=== PATIENT | male | born 1950 | race Caucasian/White ===

== ENCOUNTER 2016-09-24 02:04 | Emergency (ER) | payer MEDICARE, BC ==
[2016-09-24 02:55] LABS: Hematocrit 37 % (42-52); Hemoglobin 12.3 g/dl (14.0-18.0); Mean Corpuscular HGB Conc 33 g/dl (31-36); Mean Corpuscular Hemoglobin 30 pg (27-31); Mean Corpuscular Volume 89 fL (80-94); Mean Platelet Volume 10 um3 (7.4-10.4); Red Blood Count 4.15 10^6/ul (4.0-5.4); Red Cell Distribution Width 13 % (10.5-15); White Blood Count 6.4 10^3/ul (3.5-10.8)
[2016-09-24 03:36] LABS: Albumin 3.7 g/dL (3.2-5.2); BUN/Creatinine Ratio 14.8 (8-20); EGFR African American 122.2 (>60); EGFR Non-African American 95.1 (>60); Globulin 3.4 g/dL (2-4); Magnesium 2.2 mg/dL (1.9-2.7); Total Bilirubin 0.6 mg/dL (0.2-1.0); Total Protein 7.1 g/dL (6.4-8.9)
[2016-09-24 03:41] LABS: Potassium 4.5 mmol/L (3.5-5.0)
[2016-09-24 04:00] LABS: Urine Bilirubin Negative (Negative); Urine Glucose Negative (Negative); Urine Nitrite Negative (Negative)
[2016-09-24 04:35] VITALS: BP 129/79
--- NOTE | 2016-09-24 04:59 | ED ---
I, Oh,Sotato, scribed for Monroe Lawrence MD on 09/24/16 at 0310 . HPI Febrile Illness - HPI Summary HPI Summary: This 66 y/o male presents to ED for persistent subjective fever since last week. "Having trouble going to sleep". Positive general myalgia and arthralgia. Pt decided to visit ED when he became concerned with persistent symptoms. Fever is alleviated with IBP and APAP. Temperature of 98.3 F is noted at triage. PMHx includes HTN, HLD, and anal fissure that was recently evaluated by his PCP 2 weeks ago. Primary care involves provider in [place]. - History of Current Complaint Chief Complaint: EDFever Time Seen by Provider: 09/24/16 02:52 Hx Obtained From: Patient Onset/Duration: Started Weeks Ago, Still Present Timing: Constant Pain Intensity: 5 Pain Scale Used: 0-10 Numeric Aggravating Factors: Nothing Alleviating Factors: OTC Medicine - APAP and IBP Associated Signs and Symptoms: Arthralgia, Myalgia - general - Allergy/Home Medications Allergies/Adverse Reactions: Allergies Allergy/AdvReac Type Severity Reaction Status Date / Time No Known Allergies Allergy Verified 09/24/16 02:12 PMH/Surg Hx/FS Hx/Imm Hx Cardiovascular History: Reports: Hx Hypercholesterolemia, Hx Hypertension Infectious Disease History: No Infectious Disease History: Denies: Traveled Outside the [place] in Last 30 Days - Family History Known Family History: Positive: Hypertension - Social History Alcohol Use: None Hx Substance Use: No Substance Use Type: Reports: None Review of Systems Positive: Fever - subjective, Fatigue Positive: Arthralgia, Myalgia - general All Other Systems Reviewed And Are Negative: Yes Physical Exam Triage Information Reviewed: Yes Vital Signs On Initial Exam: Initial Vitals Temp Pulse Resp BP Pulse Ox 98.3 F 89 16 134/81 95 09/24/16 02:08 09/24/16 02:08 09/24/16 02:08 09/24/16 02:08 09/24/16 02:08 Vital Signs Reviewed: Yes Appearance: Positive: Well-Appearing, No Pain Distress Skin: Positive: Warm Head/Face: Positive: Normal Head/Face Inspection Eyes: Positive: KRYSTAL ENT: Positive: Hearing grossly normal Neck: Positive: Supple Respiratory/Lung Sounds: Positive: Clear to Auscultation, Breath Sounds Present Cardiovascular: Positive: RRR Abdomen Description: Positive: Nontender, Soft Bowel Sounds: Positive: Present Neurological: Positive: Sensory/Motor Intact, Alert, Oriented to Person Place, Time Diagnostics - Vital Signs Vital Signs Temp Pulse Resp BP Pulse Ox 09/24/16 02:08 98.3 F 89 16 134/81 95 - Laboratory Lab Results: Lab Results 09/24/16 09/24/16 09/24/16 Range/Units 02:40 02:40 02:40 WBC 6.4 (3.5-10.8) 10^3/ul RBC 4.15 (4.0-5.4) 10^6/ul Hgb 12.3 L (14.0-18.0) g/dl Hct 37 L (42-52) % MCV 89 (80-94) fL MCH 30 (27-31) pg MCHC 33 (31-36) g/dl RDW 13 (10.5-15) % Plt Count 156 (150-450) 10^3/ul MPV 10 (7.4-10.4) um3 Neut % (Auto) 68.7 (38-83) % Lymph % (Auto) 17.0 L (25-47) % Cache % (Auto) 12.4 H (1-9) % Eos % (Auto) 1.7 (0-6) % Baso % (Auto) 0.2 (0-2) % Absolute Neuts (auto) 4.4 (1.5-7.7) 10^3/ul Absolute Lymphs (auto) 1.1 (1.0-4.8) 10^3/ul Absolute Monos (auto) 0.8 (0-0.8) 10^3/ul Absolute Eos (auto) 0.1 (0-0.6) 10^3/ul Absolute Basos (auto) 0 (0-0.2) 10^3/ul Absolute Nucleated RBC 0.01 10^3/ul Nucleated RBC % 0.1 Sodium 134 (133-145) mmol/L Potassium 4.5 (3.5-5.0) mmol/L Chloride 104 (101-111) mmol/L Carbon Dioxide 26 (22-32) mmol/L Anion Gap 4 (2-11) mmol/L BUN 12 (6-24) mg/dL Creatinine 0.81 (0.67-1.17) mg/dL Est GFR ( Amer) 122.2 (>60) Est GFR (Non-Af Amer) 95.1 (>60) BUN/Creatinine Ratio 14.8 (8-20) Glucose 116 H (70-100) mg/dL Lactic Acid 0.8 (0.5-2.0) mmol/L Calcium 9.0 (8.6-10.3) mg/dL Magnesium 2.2 (1.9-2.7) mg/dL Total Bilirubin 0.60 (0.2-1.0) mg/dL AST 40 H (13-39) U/L ALT 42 (7-52) U/L Alkaline Phosphatase 268 H (34-104) U/L Total Protein 7.1 (6.4-8.9) g/dL Albumin 3.7 (3.2-5.2) g/dL Globulin 3.4 (2-4) g/dL Albumin/Globulin Ratio 1.1 (1-3) Urine Color Urine Appearance Urine pH (5-9) Ur Specific [place] (1.010-1.030) Urine Protein (Negative) Urine Ketones (Negative) Urine Blood (Negative) Urine Nitrate (Negative) Urine Bilirubin (Negative) Urine Urobilinogen (Negative) Ur Leukocyte Esterase (Negative) Urine Glucose (Negative) Influenza A (Rapid) (Negative) Influenza B (Rapid) (Negative) 09/24/16 09/24/16 Range/Units 03:19 03:40 WBC (3.5-10.8) 10^3/ul RBC (4.0-5.4) 10^6/ul Hgb (14.0-18.0) g/dl Hct (42-52) % MCV (80-94) fL MCH (27-31) pg MCHC (31-36) g/dl RDW (10.5-15) % Plt Count (150-450) 10^3/ul MPV (7.4-10.4) um3 Neut % (Auto) (38-83) % Lymph % (Auto) (25-47) % Cache % (Auto) (1-9) % Eos % (Auto) (0-6) % Baso % (Auto) (0-2) % Absolute Neuts (auto) (1.5-7.7) 10^3/ul Absolute Lymphs (auto) (1.0-4.8) 10^3/ul Absolute Monos (auto) (0-0.8) 10^3/ul Absolute Eos (auto) (0-0.6) 10^3/ul Absolute Basos (auto) (0-0.2) 10^3/ul Absolute Nucleated RBC 10^3/ul Nucleated RBC % Sodium (133-145) mmol/L Potassium (3.5-5.0) mmol/L Chloride (101-111) mmol/L Carbon Dioxide (22-32) mmol/L Anion Gap (2-11) mmol/L BUN (6-24) mg/dL Creatinine (0.67-1.17) mg/dL Est GFR ( Amer) (>60) Est GFR (Non-Af Amer) (>60) BUN/Creatinine Ratio (8-20) Glucose (70-100) mg/dL Lactic Acid (0.5-2.0) mmol/L Calcium (8.6-10.3) mg/dL Magnesium (1.9-2.7) mg/dL Total Bilirubin (0.2-1.0) mg/dL AST (13-39) U/L ALT (7-52) U/L Alkaline Phosphatase (34-104) U/L Total Protein (6.4-8.9) g/dL Albumin (3.2-5.2) g/dL Globulin (2-4) g/dL Albumin/Globulin Ratio (1-3) Urine Color Yellow Urine Appearance Clear Urine pH 6.0 (5-9) Ur Specific [place] 1.008 L (1.010-1.030) Urine Protein Negative (Negative) Urine Ketones Negative (Negative) Urine Blood Negative (Negative) Urine Nitrate Negative (Negative) Urine Bilirubin Negative (Negative) Urine Urobilinogen Negative (Negative) Ur Leukocyte Esterase Negative (Negative) Urine Glucose Negative (Negative) Influenza A (Rapid) Negative (Negative) Influenza B (Rapid) Negative (Negative) Result Diagrams: 09/24/16 02:40 09/24/16 02:40 Lab Statement: Any lab studies that have been ordered have been reviewed, and results considered in the medical decision making process. Re-Evaluation - Re-Evaluation First Eval Comment: pt improved, results d/w pt Course/Dx - Course Assessment/Plan: This 66 y/o male presents to ED for persistent fever since a week ago. Positive general myalgia and arthralgia. Blood work is wnl except for mild anemia. Rapid flu is negative. Pt is discharged with outpatient f/u. - Diagnoses Provider Diagnoses: Febrile illness Discharge - Discharge Plan Condition: Stable Disposition: HOME Patient Education Materials: Fever in Adults (ED) Referrals: [facility] [place]] - 2 Days The documentation as recorded by the Gurvinder lo Soohyun accurately reflects the service I personally performed and the decisions made by me, Monroe Lawrence MD.
== END 2016-09-24 04:37 | disposition home or self-care (01) ==
LOC: ED 02:04
DX: R50.9 Fever, unspecified (principal); R53.83 Other fatigue
CPT/HCPCS: 36415; 80053; 81003; 83605; 83735; 85025; 87502; 99283

== ENCOUNTER 2016-10-15 11:56 | Emergency (ER) | payer MEDICARE, BC ==
[2016-10-15 12:14] VITALS: BP 138/80
[2016-10-15] MEDS ORDERED: Penicillin G Benzathine 2.4MU* 2,400,000 UNITS/4 ML SYR IM ONE (13:59)
--- NOTE | 2016-10-15 14:01 | UC ---
florian Roblero Timothy, scribed for Lizbeth Thomas MD on 10/15/16 at 1331 . Back Pain HPI - HPI Summary HPI Summary: Mehrdad Everett is a 66 yo male presenting to [facility] with 5/10 back pain and tightness with a suspected pinched nerve since 09/23/16, unable to sleep even when using a moist, hot compress. His pain increases with movement, standing, sitting. Pt denies bowel/bladder changes. Pt denies ext weakness or paresthesias. Pt states has been eval at [facility] ED as well as 2 ED in [facility] where he lives primarily. Pt states as seen a spine surgeon on 10/08 and is scheduled for an MRI next week. Pt states has an Rx for Valium and had a hydrocodone which helped. Pt states he completed hydrocodone and as a result was unable t to get comfortable last evening. Pt states he used OTC med and valium without good relief. Pt states has a f/u with his PCP in [place] next thursday or Thursday. Pt in [place] until Thursday. Pt requesting analgesia for sleep. Pt also reports he was diagnoses with syphillis. Pt has had 1 of 3 PCN injections. Pt with documentation from [place] supporting this. Pt requesting his 2nd injection today. Pt denies fever, chills, lee. Pt with ongoing, unchanged rash on soles of b.l feet. No cp, sob, abd pain. No n/v. No other complaints Pt medication list reviewed this visit. - History of Current Complaint Chief Complaint: UCBackPain Stated Complaint: BACK PAIN Time Seen by Provider: 10/15/16 13:16 Hx Obtained From: Patient Onset/Duration: Gradual Onset, Lasting Days, Still Present Timing: Constant Severity Initially: Moderate Severity Currently: Moderate Pain Intensity: 5 Pain Scale Used: 0-10 Numeric Back Pain: Is Discrete @ - back Character: Dull Aggravating: Movement, Walking Alleviating: Rest - Allergies/Home Medications Allergies/Adverse Reactions: Allergies Allergy/AdvReac Type Severity Reaction Status Date / Time No Known Allergies Allergy Verified 09/24/16 02:12 Home Medications: Home Medications Aspirin Low Dose CHEW TAB* [Aspirin Low Dose TAB*] 1 tab PO DAILY 10/15/16 [ History Confirmed 10/15/16] DOXYcycline CAP(*) [DOXYcycline 100MG CAP(*)] 100 mg PO BID 10/15/16 [History Confirmed 10/15/16] Diazepam TAB(*) [Valium TAB(*)] 5 mg PO Q8HR PRN 10/15/16 [History Confirmed ] Famotidine TAB* [Pepcid 20 MG TAB*] 20 mg PO BID 10/15/16 [History Confirmed ] HYDROcodone/ACETAMIN 5-325 MG* [[place] 5-325 TAB*] 1 tab PO Q8HR PRN 10/15/16 [ History Confirmed 10/15/16] Lisinopril TAB* [Prinivil TAB 5 MG*] 5 mg PO DAILY 10/15/16 [History Confirmed 10/15/16] [id number] Ethyl Esters [Lovaza 1 gm] 4 gm PO DAILY 10/15/16 [History Confirmed 10/15/16] Ondansetron TAB* [Zofran 4 MG Tab*] 4 mg PO Q8HR PRN 10/15/16 [History Confirmed 10/15/16] oxyCODONE SR TAB(*) [Oxycontin 40 mg (*)] 80 mg PO Q12HR 10/15/16 [History Confirmed 10/15/16] PMH/Surg Hx/FS Hx/Imm Hx - Additional Past Medical History Additional PMH: HLD, syphilis Cardiovascular History: Hypertension - Surgical History Surgical History: None - Family History Known Family History: Positive: Hypertension, Diabetes - Social History Occupation: Retired Lives: Alone Alcohol Use: None Substance Use Type: None Smoking Status (MU): Never Smoked Tobacco Review of Systems Constitutional: Negative Skin: Rash - bilateral feet Eyes: Negative ENT: Negative Respiratory: Negative Cardiovascular: Negative Gastrointestinal: Negative Genitourinary: Negative Motor: Negative Neurovascular: Negative Musculoskeletal: Other: - back pain Neurological: Negative Psychological: Negative All Other Systems Reviewed And Are Negative: Yes Physical Exam Triage Information Reviewed: Yes Appearance: Well-Appearing, No Pain Distress, Well-Nourished Vital Signs: Initial Vital Signs Temp 98 F 10/15/16 12:08 Pulse 89 10/15/16 12:08 Resp 16 10/15/16 12:08 BP 138/80 10/15/16 12:08 Pulse Ox 97 10/15/16 12:08 Vital Signs Reviewed: Yes Eye Exam: Normal Eyes: Positive: Conjunctiva Clear ENT: Positive: Normal ENT inspection, Hearing grossly normal, Pharynx normal, Nasal congestion, TMs normal Neck exam: Normal Neck: Positive: Supple, Nontender, No Lymphadenopathy Respiratory Exam: Normal Respiratory: Positive: Chest non-tender, Lungs clear, Normal breath sounds, No respiratory distress, No accessory muscle use Cardiovascular Exam: Normal Cardiovascular: Positive: RRR, No Murmur, Pulses Normal Abdominal Exam: Normal Abdomen Description: Positive: Nontender, No Organomegaly, Soft Bowel Sounds: Positive: Present Musculoskeletal: Positive: Other: - no pain spinous process c/t/l/s + TTP paraspinal left cervical area + 5/5 abduction shoulders b/l + flex/ext elbows, wrist 5/5 grasp ambulatory without difficult Neurological: Positive: Alert, Other: - + thumb up, a ok, finger spread, cross 2 + bicep, patellar b/l without clonus Psychological Exam: Normal Skin Exam: Other - Pt with small, brown, flat non pururitic rash b/l LE mostly 2-3mm on sole of b/l feet Back Pain Course/Dx - Course Course Of Treatment: Mehrdad Everett is a 66 yo male presenting to [facility] with 5/10 back pain and tightness with a suspected pinched nerve unable to sleep. Istop checked s/w pt hx. Pt has valium. Will give 2 [place] QHS - total 10 tabs. Pt also requesting PCN injection #2/3 for syphilis tx Paperwork to support dx. Pt medication list reviewed this visit. Pt to return to [place] and f/u with pcp, surgeon, MRI as scheduled - Differential Dx/Diagnosis Differential Diagnosis/HQI/PQRI: Other - pinched nerve Provider Diagnoses: syphillis, exacerbation of back pain Discharge - Discharge Plan Condition: Stable Disposition: HOME Prescriptions: Hydrocodone-Acetaminophen [[place] 5-325 mg] 1 - 2 tab PO QPM PRN #10 tab MDD 2 PRN Reason: pain Hydrocodone-Acetaminophen [[place] 5-325 mg] 1 - 2 tab PO QPM #10 tab MDD 2 Patient Education Materials: Syphilis (ED), Neck Pain (ED) Referrals: [place], Primary Care Physician [Other] - As Soon As Possible Additional Instructions: You were given your second dose of antibiotics to treat syphillis as instructed on your paperwork from the emergency center in [place]. You will need one additional dose You have valium - okay to take for back spasms. Do NOT drive, operate machinery or drink alchohol while taking this medication You have been given a prescription for [place] for bedtime. Do not drive or operate machinery with this medication. Okay to take Tylenol during the day Apply heat to your back - once your muscles are warm, slow gentle stretching Keep your appointment as scheduled on 10/20 or 10/21 If you develop difficulty controlling your bowel or bladder, extremilty weakness or any other concerning symptoms you should go to the emergency department for further imaging Please follow up with your primary care physician regarding your visit to urgent care today. Return to urgent care or the emergency department with any new or recurring symptoms. The documentation as recorded by the florian lo Timothy accurately reflects the service I personally performed and the decisions made by , Lizbeth Thomas MD.
== END 2016-10-15 14:18 | disposition home or self-care (01) ==
LOC: UCEAST 11:56
DX: A53.9 Syphilis, unspecified (principal); M54.9 Dorsalgia, unspecified; R21 Rash and other nonspecific skin eruption; I10 Essential (primary) hypertension
CPT/HCPCS: 96372; 99212; G0463; J0561